=== PATIENT | female | born 1940 | race Caucasian/White ===

== ENCOUNTER → 2017-09-18 | Outpatient (CLI) | payer MEDICARE, OTHER ==
--- NOTE | 2017-09-23 09:08 | RSPPFT ---
DATE OF PROCEDURE: 09/18/17 COMMENTS: Spirometry demonstrated an FEV1 of 0.5 at 24% of predicted, FVC of 2.0 at 74%, FEV1/FVC ratio is 24. The FEF 25-75 is 7% of predicted. Post-bronchodilator study demonstrated no significant change. Lung volumes demonstrated a raised RV/TLC ratio indicating hyperinflation with air trapping. Diffusion capacity is severely reduced. Flow volume loops suggest severe obstruction. IMPRESSION: 1. Severe obstructive disease. 2. No significant change following use of bronchodilator. 3. Severe loss in diffusion capacity.
== END ==
LOC: PHRSP 10:33
DX: J44.9 Chronic obstructive pulmonary disease, unspecified (principal); R06.00 Dyspnea, unspecified; R05 Cough; I10 Essential (primary) hypertension
CPT/HCPCS: 94060; 94726; 94729

== ENCOUNTER 2018-03-08 19:52 | Emergency (ER) | payer MEDICARE, OTHER ==
[~2018-03-08] VITALS: Ht 167.6 cm; Wt 46.8 kg
[2018-03-08 19:57] VITALS: BP 179/86; PULSE 92; RESP 18; TEMP 97.2; O2SAT 97
[2018-03-08] MEDS ORDERED: LIDOCAINE 1%/EPINEPHrine 1:100,000 SOLN 20 ML VIAL INFIL ONE (20:15)
--- NOTE | 2018-03-08 20:20 | PD ---
HPI Chief Complaint: Laceration/Skin Injury Time Seen by Provider: 20:04 Travel History International Travel<30 days: No Contact w/Intl Traveler<30days: No Traveled to known affect area: No History of Present Illness HPI The patient is a 77-year-old female who presents to the emergency department via private vehicle for a laceration to the head as well as a skin tear to the right arm, leg, and abrasions to the right shoulder. The patient states she tripped and fell on an escalator at [facility] resulting in her injuries. She denies any loss of consciousness with the fall, was able to get up and ambulate without difficulty. She was also able to drive her vehicle from the airport home prior to coming to the emergency department. She cannot recall her last tetanus shot. She denies any significant headache. She does note some bleeding from the right arm skin tear, does know she has thin skin. She does take an aspirin daily. She does have a history of allergies to Neosporin, however, is able to take Bactroban without difficulty. She denies any difficulty using her upper or lower extremities and is able to actively without difficulty. She denies any headache or neck pain. Symptoms are mild. PFSH Past Medical History Narrative Medical Hypertension, hyperlipidemia, hypothyroidism, lumbar cyst ?: Not Past Surgical History Narrative Surgical Cataract surgery, hysterectomy, partial nephrectomy Social History Tobacco Use: No (Quit 12 years ago) Allergies-Medications (Allergen,Severity, Reaction): Coded Allergies: bacitracin (Verified Allergy, Intermediate, Rash, 03/08/18) latex (Verified Allergy, Intermediate, rash, 03/08/18) polymyxin B (Verified Allergy, Intermediate, Rash, 03/08/18) Reported Meds & Prescriptions Reported Meds & Active Scripts Active Bactroban Topical (Mupirocin) 22 Gm Cream 1 Applic TOPICAL BID Review of Systems Except as stated in HPI: all other systems reviewed are Neg HENT: No: Headaches, Neck Pain Cardiovascular: No: Chest Pain or Discomfort Respiratory: No: Shortness of Breath Gastrointestinal: No: Nausea, Vomiting, Abdominal Pain Musculoskeletal: No: Pain Skin: Positive Other (As noted in the history of present illness) Neurologic: No: Paresthesia, Sensory Disturbance Physical Exam Narrative GENERAL: Awake, alert, very pleasant 77-year-old female who appears her stated age and is in no acute respiratory distress. SKIN: Focused skin assessment warm/dry. HEAD: 7 cm V-shaped laceration to the superior aspect of the head with no active bleeding. EYES: Pupils equal and round. No scleral icterus. No injection or drainage. ENT: No nasal bleeding or discharge. Mucous membranes pink and moist. NECK: Trachea midline. No JVD. No tenderness of the cervical vertebrae. CARDIOVASCULAR: Regular rate and rhythm. No murmur appreciated. RESPIRATORY: No accessory muscle use. Clear to auscultation. Breath sounds equal bilaterally. GASTROINTESTINAL: Abdomen soft, non-tender, nondistended. Hepatic and splenic margins not palpable. MUSCULOSKELETAL: Patient has superficial abrasions over the right superior scapula. The patient has a skin tear to the extensor surface of the right forearm but there is no subcutaneous tissue involvement. There is a mild amount of capillary bleeding. She also has a superficial abrasion to the right lower extremity. NEUROLOGICAL: Awake and alert. No obvious cranial nerve deficits. Motor grossly within normal limits. Normal speech. Nonfocal. Oriented 4. Follows commands without difficulty. PSYCHIATRIC: Appropriate mood and affect; insight and judgment normal. Data Data Last Documented VS Vital Signs Date Time Temp Pulse Resp B/P (MAP) Pulse Ox O2 Delivery O2 Flow Rate FiO2 03/08/18 19:57 97.2 92 18 179/86 (117) 97 Orders Orders Lidocai-Epi 1%-1:100,000 Inj (Xylocaine- (03/08/18 20:15) Tetanus/Diphtheria Tox Adult (Tetanus/Di (03/08/18 20:45) MDM Medical Decision Making Medical Screen Exam Complete: Yes Emergency Medical Condition: Yes Medical Record Reviewed: Yes Differential Diagnosis Differential diagnosis includes closed head injury, laceration, abrasion, skin tear, contusion, coagulopathy. Narrative Course The patient's tetanus shot was updated. The laceration to the head was anesthetized with 1% lidocaine with epinephrine using a 27-gauge needle, irrigated, and stapled. The patient skin tears were cleaned with sterile saline , Xeroform and dry nonadhesive sterile dressings were applied. The patient will be prescribed Bactroban to place over her wounds as she is not allergic to Bactroban and is allergic to Neosporin. Patient is advised to have the sally removed in 7-10 days. Return if symptoms worsen or progress. Wound care instructions. Procedures Procedure Narrative LACERATION LOCATION: Scalp LENGTH: 7 cm NUMBER OF STITCHES/SALLY: 12 REPAIR: The area of the laceration was prepped with Betadine and sterilely draped. The laceration was infiltrated with 1% lidocaine with epinephrine. The wound was copiously irrigated and explored without evidence of foreign body , tendon injury or neurovascular injury. The wound was closed using sally. This was a single layer repair. A sterile dressing was applied. The patient was advised to keep the dressing clean and dry. Patient tolerated the procedure well. Diagnosis Primary Impression: Closed head injury Qualified Codes: S09.90XA - Unspecified injury of head, initial encounter Additional Impressions: Laceration of scalp Qualified Codes: S01.01XA - Laceration without foreign body of scalp, initial encounter Multiple skin tears Patient Instructions: General Instructions Additional Instructions: Staple removal in 7-10 days. Wound care instructions. Bactroban twice a day. Monitor for signs of infection. Follow-up with your primary physician. Return if symptoms worsen or progress. Med/Other Pt SpecificInfo: Prescription(s) given Scripts Mupirocin Topical (Bactroban Topical) 22 Gm Cream 1 APPLIC TOPICAL BID for Mgmt Bacterial Infection, #1 TUBE 0 Refills Prov: Nasir Mathew MD 03/08/18 Disposition: 01 DISCHARGE HOME Condition: Stable Nasir Mathew MD March 08, 2018 20:20
[2018-03-08] MEDS ORDERED: MUPI2%T TOPICAL (20:36)
[2018-03-08] MEDS ORDERED: TETANUS/DIPHTHERIA TOXOID ADULT 0.5 ML VIAL IM ONE (20:45)
[2018-03-08] MEDS ORDERED: LEVO.075 PO (21:16)
[2018-03-08] MEDS ORDERED: LIPI10TA PO (21:16)
[2018-03-08] MEDS ORDERED: LISI40TA PO (21:16)
[2018-03-08] MEDS ORDERED: MELO15TA20 PO (21:16)
[2018-03-08] MEDS ORDERED: ASPI1CHW4 CHEW (21:16)
== END 2018-03-08 21:33 | disposition home or self-care (01) ==
LOC: PHED 19:52
DX: S09.90XA Unspecified injury of head, initial encounter (principal); S01.01XA Laceration without foreign body of scalp, initial encounter; I10 Essential (primary) hypertension; E78.5 Hyperlipidemia, unspecified; E03.9 Hypothyroidism, unspecified; W01.0XXA Fall on same level from slipping, tripping and stumbling without subsequent striking against object, initial encounter; Z87.891 Personal history of nicotine dependence; Z23 Encounter for immunization
CPT/HCPCS: 12002; 90471; 90714

== ENCOUNTER 2018-03-16 11:43 | Emergency (ER) | payer MEDICARE, OTHER ==
[~2018-03-16] VITALS: Ht 167.6 cm; Wt 46.0 kg
[~2018-03-16 11:43] MED LIST: ASPI1CHW4 CHEW; LEVO.075 PO; LIPI10TA PO; LISI40TA PO; MELO15TA20 PO; MUPI2%T TOPICAL
[2018-03-16 11:45] VITALS: BP 183/113; PULSE 100; RESP 16; TEMP 98.2; O2SAT 93
[2018-03-16] MEDS ORDERED: ALEV220T14 PO (11:57)
[2018-03-16] MEDS ORDERED: FLUT1INH7 INH (11:57)
[2018-03-16] MEDS ORDERED: ESTR0.5T PO (11:57)
[2018-03-16] MEDS ORDERED: UMEC1INH INH (11:57)
--- NOTE | 2018-03-16 12:23 | PD ---
HPI Chief Complaint: Wound/Suture/Staple Re-Check Time Seen by Provider: 12:09 Travel History International Travel<30 days: No Contact w/Intl Traveler<30days: No Traveled to known affect area: No History of Present Illness HPI Patient 77-year-old female presents emergency department for removal of stitches to the scalp, placed 10 days ago, after she fell on an escalator and had some abrasions. She also complains of some right shoulder pain and thinks that the pain is gradually gotten worse since that fall. Denies any repeat injuries, denies any numbness to tingling in her extremities. She does request an x-ray for her right shoulder pain. States pain is minimal, right shoulder, nonradiating, context as above. PFSH Past Medical History Hx Anticoagulant Therapy: Yes (BABY ASA DAILY) Arthritis: Yes Cardiovascular Problems: Yes (HTN, CHOL) COPD: Yes Diabetes: No Diminished Hearing: No Hypertension: Yes Immunizations Current: Yes Thyroid Disease: Yes (hypo) Tetanus Vaccination: < 5 Years Influenza Vaccination: Yes ?: Not Past Surgical History Eye Surgery: Yes (bilat catarcats removed) Genitourinary Surgery: Yes (partial nephrectomy ) Hysterectomy: Yes Social History Alcohol Use: No Tobacco Use: No (Quit 12 years ago) Substance Use: No Allergies-Medications (Allergen,Severity, Reaction): Coded Allergies: bacitracin (Verified Allergy, Intermediate, Rash, 03/16/18) latex (Verified Allergy, Intermediate, rash, 03/16/18) polymyxin B (Verified Allergy, Intermediate, Rash, 03/16/18) Reported Meds & Prescriptions Reported Meds & Active Scripts Active Bactroban Topical (Mupirocin) 22 Gm Cream 1 Applic TOPICAL BID Reported Incruse Ellipta Inh (Umeclidinium [place] Inh) 0.0625 Mg/Act Inh 62.5 Mcg INH DAILY Breo Ellipta Inh (Fluticasone/Vilanterol) 200-25 Mcg/Act Inh 1 Puff INH DAILY Use daily at the same time. Estradiol 0.5 Mg Tab 0.5 Mg PO DAILY Aleve Arthritis (Naproxen Sodium) 220 Mg Tab 220 Mg PO BID Meloxicam 15 Mg Tab 15 Mg PO DAILY Lisinopril 40 Mg Tab 40 Mg PO DAILY Lipitor (Atorvastatin Calcium) 10 Mg Tab 10 Mg PO HS Synthroid (Levothyroxine Sodium) 75 Mcg Tab 75 Mcg PO DAILY Aspirin 81 Low Dose (Aspirin) 81 Mg Chew 81 Mg CHEW DAILY Review of Systems Except as stated in HPI: all other systems reviewed are Neg Physical Exam Narrative GENERAL: Well-nourished, well-developed patient. SKIN: Focused skin assessment warm/dry. Small abrasions to the patient is previously documented, all appear to be healing well, there is a small laceration on the scalp with [address] all of which were removed. Previous documentation states that 12 sally were placed and the wound was explored thoroughly and no additional staple was seen. HEAD: Normocephalic. EYES: No scleral icterus. No injection or drainage. NECK: Supple, trachea midline. No JVD or lymphadenopathy. CARDIOVASCULAR: Regular rate and rhythm without murmurs, gallops, or rubs. RESPIRATORY: Breath sounds equal bilaterally. No accessory muscle use. GASTROINTESTINAL: Abdomen soft, non-tender, nondistended. MUSCULOSKELETAL: No cyanosis, or edema. Patient is full nontender range of motion of all joints, there is minimal tenderness of the soft tissue the right shoulder, small overlying abrasion. No midline CT or L-spine tenderness, the remainder of extremities show no gross deformity but there are scattered abrasions as previously documented BACK: Nontender without obvious deformity. No CVA tenderness. Data Data Last Documented VS Vital Signs Date Time Temp Pulse Resp B/P (MAP) Pulse Ox O2 Delivery O2 Flow Rate FiO2 03/16/18 11:45 98.2 100 16 183/113 (136) 93 Orders Orders Shoulder, Complete (>2vws) (03/16/18 ) Ed Discharge Order (03/16/18 13:43) MDM Medical Decision Making Medical Screen Exam Complete: Yes Emergency Medical Condition: Yes Differential Diagnosis Shoulder strain, shoulder sprain, shoulder fracture unlikely, encounter for staple removal. Narrative Course Patient room to the emergency department, x-rays reassuring. Discussed follow- up with a primary care physician and return to ED criteria discussed ongoing wound care she is stable for discharge per Last 24 hours Impressions Shoulder X-Ray 03/16/18 0000 Signed Impressions: CONCLUSION: 1. No acute fracture or dislocation. 2. Chronic rotator cuff injury. Diagnosis Primary Impression: Right shoulder pain Additional Impression: Visit for suture removal Patient Instructions: General Instructions, Musculoskeletal Pain (ED) Disposition: 01 DISCHARGE HOME Condition: Stable Tommy Caldwell MD Mar 16, 2018 12:23
--- NOTE | 2018-03-16 13:57 | RADRPT ---
EXAM DATE: 03/16/2018 1:32 PM EDT AGE/SEX: 77 years / Female INDICATIONS: Right shoulder pain, Fell one week ago. CLINICAL DATA: This is the patient's initial encounter. Patient reports that signs and symptoms have been present for 1 week and indicates a pain score of 7/10. MEDICAL/SURGICAL HISTORY: . . COMPARISON: POI, XR CHEST PA AND LAT, 11/20/2017. . FINDINGS: Bony structures are intact and in normal alignment. Joints are intact without dislocation or signifi cant arthropathy. An ossification is seen associated with the posterior superior humeral head. No hig h riding humeral head observed. Osseous density is normal. Soft tissues are unremarkable. No radiop aque foreign bodies seen. CONCLUSION: 1. No acute fracture or dislocation. 2. Chronic rotator cuff injury. Electronically signed by: Gwyn Alexander MD 03/16/2018 1:56 PM EDT
== END 2018-03-16 13:56 | disposition home or self-care (01) ==
LOC: PHEFT 11:43
DX: M25.511 Pain in right shoulder (principal); S01.01XD Laceration without foreign body of scalp, subsequent encounter; W10.0XXD Fall (on)(from) escalator, subsequent encounter; Z48.02 Encounter for removal of sutures; I10 Essential (primary) hypertension; J44.9 Chronic obstructive pulmonary disease, unspecified; E03.9 Hypothyroidism, unspecified; Z87.891 Personal history of nicotine dependence
CPT/HCPCS: 73030; 99283

== ENCOUNTER 2018-03-24 19:32 | Emergency (ER) | payer MEDICARE, OTHER ==
[~2018-03-24] VITALS: Ht 167.6 cm; Wt 45.2 kg
[~2018-03-24 19:32] MED LIST changes: +ALEV220T14 PO; +ESTR0.5T PO; +FLUT1INH7 INH; +UMEC1INH INH
[2018-03-24 19:47] VITALS: BP 157/78; PULSE 97; RESP 18; TEMP 98.6; O2SAT 94
--- NOTE | 2018-03-24 20:25 | PD ---
HPI Chief Complaint: Wound/Suture/Staple Re-Check Time Seen by Provider: 19:53 Travel History International Travel<30 days: No Contact w/Intl Traveler<30days: No Traveled to known affect area: No History of Present Illness HPI 77-year-old female here requesting recheck of a scalp laceration. She believes one staple remains and was not removed at her prior visit. She denies any fever , chills or drainage from the site. She has no medical complaint. Symptom severity is mild. PFSH Past Medical History Hx Anticoagulant Therapy: Yes (BABY ASA DAILY) Arthritis: Yes Cardiovascular Problems: Yes (HTN, CHOL) COPD: Yes Diabetes: No Diminished Hearing: No Hypertension: Yes Immunizations Current: Yes Thyroid Disease: Yes (hypo) ?: Not Past Surgical History Eye Surgery: Yes (bilat catarcats removed) Genitourinary Surgery: Yes (partial nephrectomy ) Hysterectomy: Yes Social History Alcohol Use: No Tobacco Use: No (Quit 12 years ago) Substance Use: No Allergies-Medications (Allergen,Severity, Reaction): Coded Allergies: bacitracin (Verified Allergy, Intermediate, Rash, 03/24/18) latex (Verified Allergy, Intermediate, rash, 03/24/18) polymyxin B (Verified Allergy, Intermediate, Rash, 03/24/18) Reported Meds & Prescriptions Reported Meds & Active Scripts Active Bactroban Topical (Mupirocin) 22 Gm Cream 1 Applic TOPICAL BID Reported Incruse Ellipta Inh (Umeclidinium [place] Inh) 0.0625 Mg/Act Inh 62.5 Mcg INH DAILY Breo Ellipta Inh (Fluticasone/Vilanterol) 200-25 Mcg/Act Inh 1 Puff INH DAILY Use daily at the same time. Estradiol 0.5 Mg Tab 0.5 Mg PO DAILY Aleve Arthritis (Naproxen Sodium) 220 Mg Tab 220 Mg PO BID Meloxicam 15 Mg Tab 15 Mg PO DAILY Lisinopril 40 Mg Tab 40 Mg PO DAILY Lipitor (Atorvastatin Calcium) 10 Mg Tab 10 Mg PO HS Synthroid (Levothyroxine Sodium) 75 Mcg Tab 75 Mcg PO DAILY Aspirin 81 Low Dose (Aspirin) 81 Mg Chew 81 Mg CHEW DAILY Review of Systems Except as stated in HPI: all other systems reviewed are Neg General / Constitutional: No: Fever Physical Exam Narrative GENERAL: Alert and well-appearing 77-year-old female SKIN: Warm and dry. Well-healed laceration to the scalp. There is a 2 mm scab present at the laceration line which patient believes is a stable. No sally are visualized. There is no evidence of infection HEAD: Normocephalic. EYES: No injection or drainage. NECK: Supple RESPIRATORY: No accessory muscle use. MUSCULOSKELETAL: No cyanosis, or edema. Data Data Last Documented VS Vital Signs Date Time Temp Pulse Resp B/P (MAP) Pulse Ox O2 Delivery O2 Flow Rate FiO2 03/24/18 19:47 98.6 97 18 157/78 (104) 94 MDM Medical Decision Making Medical Screen Exam Complete: Yes Emergency Medical Condition: Yes Differential Diagnosis Wound recheck, staple removal, wound infection Narrative Course 77-year-old female here requesting recheck of a scalp laceration with concern that one staple still in place. She had sally removed previously but there is an area where she believes one is left. On exam there was a small scab but no remaining sally. Diagnosis Primary Impression: Encounter for wound re-check Referrals: Primary Care Physician Disposition: 01 DISCHARGE HOME Condition: Stable Katarzyna Bahena Mar 24, 2018 20:25
== END 2018-03-24 20:42 | disposition home or self-care (01) ==
LOC: PHEFT 19:32
DX: S01.01XD Laceration without foreign body of scalp, subsequent encounter (principal); X58.XXXD Exposure to other specified factors, subsequent encounter; I10 Essential (primary) hypertension; J44.9 Chronic obstructive pulmonary disease, unspecified; Z79.82 Long term (current) use of aspirin; Z87.891 Personal history of nicotine dependence
CPT/HCPCS: 99281